=== PATIENT | female | born 2005 | race Hispanic/Latino ===

== ENCOUNTER 2023-02-19 01:04 | Emergency (ER) | payer SELFPAY ==
[2023-02-19] MEDS ORDERED: Fluorescein Opthalmic Strip ONE (02:10)
[2023-02-19] MEDS ORDERED: Metoclopramide HCl 10 MG/2 ML VIAL ONE (02:42)
[2023-02-19] MEDS ORDERED: diphenhydrAMINE 50 MG/ML VIAL ONE (02:42)
[2023-02-19 02:49] LABS: #Eosinphils 0.1 thou/uL (0.0-0.7); #Monocytes 0.7 thou/uL (0.11-0.59); #Neutrophils 5.4 thou/uL (1.40-6.50); %Basophils 0.3 % (0.0-1.0); %Eosinophils 0.8 % (0.0-10.0); %Lymphocytes 46.7 % (28.0-48.0); %Monocytes 6.2 % (0.0-4.0); %Neutrophils 45.7 % (31.0-61.0); Hematocrit 41.8 % (36.0-47.0); Hemoglobin 13.6 g/dL (12.0-16.0); Mean Corpuscular HGB CONC 32.5 g/dL (32.0-36.0); Mean Corpuscular Hemoglobin 26.3 pg (25.0-35.0); Mean Corpuscular Volume 80.7 fl (78.0-98.0); Mean Platelet Volume 9.7 fL (7.4-10.4); Platelet Count 323 10x3/uL (130-400); Red Blood Cell (RBC) Count 5.18 mill/uL (4.00-5.20); White Blood Cell (WBC) Count 11.9 10x3/uL (4.8-10.8)
[2023-02-19 03:10] LABS: Sodium 138 mmol/L (136-145)
[2023-02-19 03:11] LABS: ALT (SGPT) 11 U/L (8-55); AST (SGOT) 18 U/L (5-30); Albumin 4.8 g/dL (3.5-5.0); Alkaline Phosphatase 93 U/L (40-100); Anion Gap 14 mmol/L (10-20); BUN (Urea Nitrogen) 14 mg/dL (8.4-21.0); Bilirubin, Total 0.6 mg/dL (0.2-1.2); Calc. Creatinine Clearance 0 mL/min (70-130); Calcium 9.7 mg/dL (7.8-10.44); Carbon Dioxide 20 mmol/L (22-29); Chloride 107 mmol/L (98-107); Estimated GFR 107; Globulin 3.8 g/dL (2.4-3.5); Glucose 87 mg/dL (70-105); Magnesium 2.1 mg/dL (1.7-2.2); Potassium 3.1 mmol/L (3.5-5.1); Protein, Total 8.6 g/dL (6.0-8.3)
[2023-02-19 03:23] LABS: BHCG - Serum Negative (NEGATIVE); Pregs Control Background? CLEAR/WHITE (CLR/WHITE); Pregs Control Bar Appear? YES (CONTROL BAR)
[2023-02-19] MEDS ORDERED: Potassium Chloride 20 MEQ TAB ONE (03:29)
[2023-02-19] MEDS ORDERED: Amoxicillin/Potassium Clav 875 MG TAB ONE (05:36)
[2023-02-19] MEDS ORDERED: Iopamidol 370 76% 100 ML VIAL ONE (09:30)
== END 2023-02-19 05:37 | disposition home or self-care (01) ==
LOC: ERS 01:04
DX: L03.213 Periorbital cellulitis (principal); E87.6 Hypokalemia; R51.9 Headache, unspecified
CPT/HCPCS: 36415; 70450; 70481; 80053; 83735; 84703; 85025; 87040; 96365; 96375; J1200; J2765; Q9967